=== PATIENT | female | born 1975 | race Caucasian/White ===

== ENCOUNTER 2021-07-27 19:42 | Emergency (ER) | payer OTHER ==
[2021-07-27 20:14] VITALS: BMI 31.7
[2021-07-27] MEDS ORDERED: IBUPROFEN 600 MG TABLET (FP) PO ONE ×2 (21:31→22:18)
[2021-07-27 23:17] VITALS: BP 113/72; PULSE 85; TEMP 100.5
== END 2021-07-27 23:34 | disposition home or self-care (01) ==
LOC: JER 19:42 → JERFT 19:42 → JER 23:34
DX: R05 Cough (principal); J20.9 Acute bronchitis, unspecified; R50.9 Fever, unspecified; Z11.52 Encounter for screening for COVID-19
CPT/HCPCS: 71046-TC-FY; 99283-25; C9803; U0003; U0005